=== PATIENT | female | born 1975 | race Caucasian/White ===

== ENCOUNTER → 2024-07-01 09:18 | Outpatient (REF) | payer OTHER, SELFPAY | LOC: HWRAD 09:18 | PROVIDERS: ATTENDING PHYSICIAN Nurse Practitioner Family | DX: Z76.89 Persons encountering health services in other specified circumstances (principal); E05.90 Thyrotoxicosis, unspecified without thyrotoxic crisis or storm | CPT/HCPCS: 76536 ==